=== PATIENT | female | born 1990 | race Caucasian/White ===

== ENCOUNTER 2016-09-10 01:00 | Inpatient (IN) | payer OTHER ==
[~2016-09-10] VITALS: Ht 162.6 cm; Wt 74.4 kg
[2016-09-10] MEDS ORDERED: Hemorrhage Kit, Post Partum XX ONE (07:40)
[2016-09-10] MEDS ORDERED: Sodium Chloride LOK Flush 10 mL Syringe IVFLUSH PRN (07:40)
[2016-09-10] MEDS ORDERED: Carboprost 250 mCg/mL Inj IM PRN (07:40)
[2016-09-10] MEDS ORDERED: Ondansetron 2 mg/mL 2 mL Inj IVPUSH PRN (07:40)
[2016-09-10] MEDS ORDERED: Oxytocin 30 Units/500 mL LR 30 UNITS in IV Premix 1 EACH IV PRN ×2 (07:40→08:35)
[2016-09-10] MEDS ORDERED: Methylergonovine 0.2 mg/mL Inj IM PRN (07:40)
[2016-09-10] MEDS ORDERED: Oxytocin 10 Unit/mL Inj IM PRN (07:40)
--- NOTE | 2016-09-10 07:55 | PCM.HPOB ---
Subjective Referring Provider: Admitting Physician: Aldair Frost MD Primary Care Physician: Aldair Frost MD Attending Physician: Aldair Frost MD Chief Complaint labor induction History of Present History of Present Illness Ms. Burleson is a 26 y/o woman at 41 weeks 6 days gestation with an BLAYNE of 08/28/16 based on LMP who presents to the [facility] for induction of labor for post-term . Her is complicated by bicornuate uterus. She was following with [facility]. From her outpatient records, ultrasound done at 32 weeks gestation showed possible IUGR, follow up at 35 weeks with MFM revealed normal growth at 26%. She has been feeling Herndon Rivera contractions and she felt one more intense contraction last night. She has some swelling in her feet. She has not had any fluid leakage or vaginal bleeding. She does not have fever, chills, headache, blurred vision, dizziness, chest pain, worsening dyspnea, upper abdominal pain, numbness, or tingling. Pt received Rhogam on 06/05/16 during . labs: O negative, first trimester and third trimester antibody screens were negative, varicella immune, rubella immune, Pap smear negative, RPR nonreactive, HBsAg negative, Hepatitis C negative, HIV nonreactive, chlamydia and gonorrhea negative, TSH 1.630, 1 hours glucose tolerance test within normal limits, GBS negative OB History: (3), Para (0) Past Medical History Obstetrical History: History of 2 first trimester spontaneous abortions Gynecologic History: No history of STIs No history of abnormal Pap smears Medical History: Seasonal allergies Hx Tobacco Use: No Hx Alcohol Use: No Hx Substance Use: No Past Family History Family History Paternal grandfather coronary artery disease Living Arrangement: with Family Review of Systems Constitutional: Y: Chills, Fever Eyes: Denies: Blurred Vision, Double Vision, Vision Changes Cardiovascular: Denies: Chest Pain, SOB while laying flat Respiratory: Denies: Cough, Pleuritic Chest Pain Gastrointestinal: Denies: Abdominal Pain, Diarrhea, Epigastric pain, Nausea, Vomiting Genitourinary: Denies: Dysuria Musculoskeletal: Reports: Swelling (bilateral feet) Neurological: Denies: Dizziness, Numbness Medications Home medications vitamin Loratadine Allergy Coded Allergies: thimerosal (Verified Allergy, Intermediate, RASH, 09/22/15) Exam Vital Signs T: 36.3 degrees C, BP 118/71, HR 94 bpm, respiratory rate 16 Exam FHR baseline 140s, moderate variability, accelerations Constitutional: Well-developed, Well-nourished HEENT: Atraumatic, EOMI, Scleral Anicteric, Mucous Membr Moist/[place] Lungs: Clear to Auscultation, Normal Air Movement Heart: Exam Unremarkable, Regular Rate/Rhythm, Normal S1, Normal S2, No Murmurs /Rubs/Gallops Abdomen: Gravid, Normal bowel sounds, No tenderness Extremities: Pulses Palpable x4, Warm, No Edema Neurological/Psychiatric: Alert, Oriented X3, Cooperative, No Acute Distress Neuro: Grossly Neurologically Intact Labs/Diagnostics Maternal Blood Type: O (negative) Antibody Screen: Negative first and third trimester Group B Strep Results: Negative Rubella: Immune Lab History: Negative for: Hx Gonorrhea, Hx HIV, Hx Herpes, Hx Syphilis OB Intrapartum Assessment/Plan Assessment 1. 26 y/o woman at 41 weeks 6 days gestation with an BLAYNE of 08/28/16 based on LMP who presents to the [facility] for induction of labor for post-term . Her is complicated by bicornuate uterus. - Blood type O negative. Given Rhogam intrapartum. Will need second Rhogam - Follow by MFM for bicornuate uterus and last US report available from 32 weeks gestation showed possible IUGR- follow up 26% at 35 weeks . She is at an increased risk for malpresentation and hemorrhage. - Mild contractions, Edmond score 7 - Admitted for induction of labor - Start Pitocin and if pt does not respond, then give Cytotec instead - Continue monitoring per protocols Attending Statement The patient was seen and examined together and I agree with the history, exam and plan as outlined in the note above. Given her Edmond's score of 7 pitocin will be started per protocol, if minimal change is noted with this can consider cervical ripening agents as needed. Birdie Ram DO Sep 10, 2016 07:55 Meghna Ruby MD Sep 10, 2016 08:53 Meghna Ruby MD Sep 10, 2016 08:53
[2016-09-10 08:04] LABS: Mean Corpuscular Hemoglobin 32.7 pg (27.0-35.0); Mean Corpuscular Volume 96.7 fL (81-100)
[2016-09-10] MEDS ORDERED: diphenhydrAMINE 50 mg Capsule PO PRN (08:35)
[2016-09-10] MEDS: Lactated Ringer's 1,000 ML IV SCH ×2 (09:20→17:47)
[2016-09-10] MEDS: fentaNYL-PF 50 mCg/mL 2 mL Inj IVPUSH PRN (22:04)
[2016-09-10] MEDS: Lactated Ringer's 1,000 ML IV PRN (23:31)
[2016-09-11] MEDS: fentaNYL-PF 50 mCg/mL 2 mL Inj IVPUSH PRN (00:24)
[2016-09-11] MEDS: Lactated Ringer's 1,000 ML IV PRN ×2 (01:58→04:30)
[2016-09-11] MEDS ORDERED: Lactated Ringer's 500 ML IV ONE (04:19)
[2016-09-11] MEDS ORDERED: EPHEDrine Sulfate 50 mg/mL Inj IVPUSH PRN ×2 (04:20→18:35)
[2016-09-11] MEDS ORDERED: Nalbuphine 10 mg/mL Inj IV PRN (04:20)
[2016-09-11] MEDS ORDERED: Ondansetron 2 mg/mL 2 mL Inj IVPUSH PRN (04:20)
[2016-09-11] MEDS ORDERED: Atropine 1 mg/10 mL (Code) Syringe IVPUSH PRN (04:20)
[2016-09-11] MEDS ORDERED: fentaNYL 2 mCg/mL-Bupiv 0.125% 100 ML EPIDURAL SCH (04:20)
--- NOTE | 2016-09-11 04:24 | PCM.HPANE ---
Patient Data Date of Service: Sep 11, 2016 Surgeon Admitting Provider:Aldair Frost MD Attending Provider:Aldair Frost MD Primary Care Physician:Aldair Frost MD Other Provider:Taylor Pham Anesthesia Reason for Visit Induction INDUCTION Ht/WT & BMI Body Mass Index Allergies Coded Allergies: thimerosal (Verified Allergy, Intermediate, RASH, 09/22/15) Past Anesthesia History Anesthesia History: Denies:: Abnormal Airway Diabetes History Hx Diabetes?: No Medications Hypertension Medication: No Home Meds Incl Beta Rajesh: No History History of ENT Problems?: No HEENT History: Denies:: Abnormal Airway Denture Type: None Teeth Condition: Within Normal Limits Hx of Heart Problems?: No Cardiovascular History: Denies:: Abdominal Aortic Aneurism Congestive Heart Failure Hypertension Hx of Respiratory Problem?: No Respiratory History: Denies:: Asthma Tuberculosis Hx Neurologic Problems?: No Neurological History: Denies:: Alzheimer's Disease Hx of GI Problems?: No Gastrointestinal History: Denies:: Cirrhosis Hx of Problems?: No Genitourinary History: Denies:: HX of Hemodialysis Female Hx: Positive for:: Currently Hx Musculoskeletal Problems?: No Musculoskeletal History: Denies:: Back Injury Hx of Psycho/Social Problems?: No Psycho Social History: Denies:: Anxiety Hx Surgeries?: No Hx Diabetes: No Hx Alcohol Use: NoHx Substance Use: No Smoking Status: Never Smoker Have You Smoked inLast 12 mo: No Stop/Bang Risk Assessment Category Category 1A: Patient has history of documented sleep apnea, and HAS NOT received any narcotic, sedative or anesthesia administration during this stay. Category 1B: Patient has history of documented sleep apnea, and HAS received any narcotic , sedative or anesthesia administration during this stay Category 2: Patient has SUSPECTED Obstructive Sleep Apnea, and HAS received any narcotic , sedative or anesthesia administration during this stay. Category 3: Patient has SUSPECTED Obstructive Sleep Apnea and HAS NOT received narcotic, sedative or anesthesia administration during this stay. Category 4: Outpatient in Procedural Areas with known sleep apnea or who screen positive for High Risk via the STOP/BANG questionnaire. Exam Exam Vital Signs reviewed with RN, unremarkable 128/76 84 18 99% afebrile General Appearance: Alert, Oriented X3, Cooperative, No Acute Distress HEENT/AIRWAY: MP 2 Lungs: Clear to Auscultation, Normal Air Movement Heart: Exam Unremarkable, Regular Rate/Rhythm, Normal S1, Normal S2, No Murmurs /Rubs/Gallops Meds/Labs/Diagnostics Admission Meds Current Medications Lactated Ringer's (Lr) 1,000 ml @ 125 mls/hr Q8H IV Last administered on t 17:47; Start 09/10/16 at 08:33 Labs Test 09/10/16 07:50 White Blood Count 10.5th/mm3 (3.8-10.1) Red Blood Count 4.19mil/mm3 (3.90-5.20) Hemoglobin 13.7g/dL (12.0-15.6) Hematocrit 40.5% (35.0-46.0) Mean Corpuscular Volume 96.7fL (81-100) Mean Corpuscular Hemoglobin 32.7pg (27.0-35.0) Mean Corpuscular Hemoglobin Concent 33.8% (32.0-37.0) Red Cell Distribution Width 12.8% (12.3-15.4) Platelet Count 205bil/L (150-400) Plan Impression Patient chart reviewed, patient interviewed and anesthestic plan with risks, benefits, and alternatives discussed, and informed consent obtained. ASA Physical Status: ASA2 Mod Systemic Disease Anesthetic Plan: Epidural Bene/Risks/Altern/Consents: Yes (including back pain, headache, nerve injury, bleeding, infection, cv/resp issues) HP Complete Prior to Induction: Yes Sonido Blackman MD Sep 11, 2016 04:24
--- NOTE | 2016-09-11 06:27 | PCM.PNOBIP ---
Subjective Date of Service Sep 11, 2016 Subjective Doing well this AM, has been on low dose pitocin all day yesterday with slow change from 2->4-->6 and then with SROM occurring around 2:30 AM. Pitocin was not increased beyond 8 and had to be dropped down multiple times due to hyperstimulation. She has since had an epidural placed at 3:30 AM and per nursing notes patient has been 7-8 since ~1am. She is now comfortable with no other complaints. heart rate decelerations that occurred after epidural placement have since resolved with pitocin rest, IVF and position changes. Pain Management: Epidural Group B Strep Results: Negative Rubella: Immune Blood Type: O (negative) Labs Laboratory Tests 09/10/16 07:50: White Blood Count 10.5, Red Blood Count 4.19, Hemoglobin 13.7, Hematocrit 40.5, Mean Corpuscular Volume 96.7, Mean Corpuscular Hemoglobin 32.7, Mean Corpuscular Hemoglobin Concent 33.8, Red Cell Distribution Width 12.8, Platelet Count 205 Exam Vital Signs Vital Signs Contraction frequency in minutes: MVUs: Vital Signs: VS reviewed, stable Heart Tracings Heart Tones Baseline 120/moderate/occasional mild variable decels, late decelerations have resolved bpm Tocometry/IUPC Contraction frequency in minutes: MVUs: Inadequate Sterile Vaginal Exam On examination the vertex is high and her cervix is 4-5 and stretchy to 8 cm with floppy cervix. Cervical Dilation: 5 cms Cervical Effacement: 80 % Station: -2 Exam General: Alert, Oriented X3, Cooperative, No Acute Distress OB Intrapartum Assessment/Plan Assessment Labor Problems: (1) , post-term Plan: On my examination I believe the patient is significantly less dilated than believed due to her floppy, stretchy cervix, as she is not 6cm dilated yet , I do not yet believe she is in active labor. At this point in time recommend continue pitocin titration until MVU adequate and patient at least >6cm for more than two hours before diagnosing an active phase arrest. heart tones reassuring. Continue same. Status: Acute ICD Code: O48.0 Intrapartum plan: Continue expected management, IUPC placed Intrapartum Pain Management: Epidural Meghna Ruby MD Sep 11, 2016 06:27
[2016-09-11] MEDS: Lactated Ringer's 1,000 ML IV SCH ×5 (08:05→20:19)
[2016-09-11] MEDS: Sodium Chloride LOK Flush 10 mL Syringe IVFLUSH SCH ×2 (08:30→16:30)
[2016-09-11] MEDS ORDERED: Oxytocin 10 Unit/mL Inj ONE ×2 (12:44→12:48)
[2016-09-11] MEDS ORDERED: Lidocaine 2%-Epi 1:100,000 20 mL Inj ONE (12:44)
[2016-09-11] MEDS ORDERED: Ondansetron 2 mg/mL 2 mL Inj ONE (12:44)
[2016-09-11] MEDS ORDERED: Chloroprocaine-MPF 2% 20 mL Inj ONE (12:44)
[2016-09-11] MEDS ORDERED: Sodium Citrate-Citric Acid 15 mL Solution ONE (16:20)
[2016-09-11] MEDS ORDERED: fentaNYL-PF 50 mCg/mL 2 mL Inj IVPUSH PRN (18:35)
[2016-09-11] MEDS ORDERED: hydrOXYzine Pamoate 25 mg Capsule PO PRN (19:20)
[2016-09-11] MEDS ORDERED: Methylergonovine 0.2 mg/mL Inj IM PRN (19:20)
[2016-09-11] MEDS ORDERED: Hemorrhage Kit, Post Partum XX ONE (19:20)
[2016-09-11] MEDS ORDERED: LANOlin HPA 7 Gm Ointment TOPICAL PRN (19:20)
[2016-09-11] MEDS ORDERED: Carboprost 250 mCg/mL Inj IM PRN (19:20)
[2016-09-11] MEDS ORDERED: Oxytocin 30 Units/500 mL LR 30 UNITS in IV Premix 1 EACH IV PRN (19:20)
[2016-09-11] MEDS ORDERED: Sodium Chloride LOK Flush 10 mL Syringe IVFLUSH PRN (19:20)
[2016-09-11] MEDS ORDERED: Acetaminophen IV 1,000 MG in IV Premix 1 EACH IV PRN (19:20)
[2016-09-11] MEDS ORDERED: Oxytocin 10 Unit/mL Inj IM PRN (19:20)
--- NOTE | 2016-09-11 19:22 | PCM.ANEP1 ---
Post Anesthesia Phase 1 PACU Phase 1 Assessment Date of Service: Sep 11, 2016 Vital Signs 36.6, 98%, 98/49, 77, 16 Anesthetic Administered: GA Level of Alertness: Awake, talking NOLAND's with Equal Strength: No Pain: No Pain Scale Score: 0 Nausea or Vomiting: No Cardiovascular Function and Hy: Yes Oxygen Delivery: Room Air Lungs: Clear to Auscultation Dermatome Level: T10 (Umbilicus) Summary Failed epidural, but SAB worked well. Complications: Yes Follow up Care: No Patient Instructions Provided: Yes (by RN) Ayden Mabry MD Sep 11, 2016 19:22
--- NOTE | 2016-09-11 23:01 | OP ---
[address] [address] OPERATIVE REPORT PATIENT: OSMAR SNYDER : 1990 MR#: [id number] ADMIT: 09/10/2016 JOB ID: [id number] DATE OF SURGERY: 09/11/2016 PROCEDURE: Primary low transverse section. PREOPERATIVE DIAGNOSIS(ES): 1. Intrauterine 41 weeks and 1 day. 2. Induction of labor for post-dates. 3. Nonreassuring heart rate. POSTOPERATIVE DIAGNOSIS(ES): 1. Intrauterine 41 weeks and 1 day. 2. Induction of labor for post-dates. 3. Nonreassuring heart rate. SURGEON: Aldair Frost MD. POTASH FLAKER: Fish Ochoa MD. Assistance of Dr. Ochoa was necessary for handling of the tissue, proper exposure, helping with delivery of the and retraction. ANESTHESIA: Spinal. ESTIMATED BLOOD LOSS: 600 mL. ESTIMATED URINE OUTPUT: 200 mL. FLUIDS: 1 L of Lactated Ringer's. COMPLICATIONS: None. PROCEDURE: The patient was brought to the operating room, where she underwent spinal anesthesia without difficulty. The patient received preoperative antibiotics. She was prepped and draped in the usual surgical fashion. Time-out was performed verifying correct patient, correct procedure. Chapis Hugger was used to maintain adequate core body temperature. Pfannenstiel skin incision was made with a scalpel and carried down to the underlying layer of rectus muscle fascia using Bovie. The rectus muscle fascia was incised in the midline with the Bovie and the incision was then laterally extended using Hunter scissors. The lower aspect of the incision was grasped with two Akin clamps and the rectus muscle fascia was from the underlying rectus muscle using Hunter scissors. In a similar fashion, the upper aspect of the incision was grasped with two Akin clamps and the rectus muscle fascia was from the underlying rectus muscle using moist laparotomy sponge and Hunter scissors. The rectus muscles were in the midline. The peritoneum was identified, tented up with two Dawna clamps, and entered sharply with the Metzenbaum scissors. The peritoneal incision was laterally extended. The bladder blade was introduced. Using scalpel, lower segment transverse uterine incision was made and extended laterally. The bladder blade was removed. The head of the infant was identified and male was atraumatically delivered with scores 8 at one minute and 10 at five minutes. Delayed cord clamping was done for 60 seconds. The was handed off to the waiting environmental compliance engineer. Cord blood was sent. The placenta was removed by applying fundal pressure. The uterus was exteriorized and cleared from all the blood clots and debris using a dry laparotomy sponge. The uterine incision was repaired with two layers of Monocryl. The pelvis was irrigated with warm normal saline. Good hemostasis was reassured and the uterus was repositioned back into the pelvis. The peritoneum was reapproximated with 2-0 Vicryl. Two interrupted 2-0 Vicryl sutures were placed to reapproximate the rectus muscles. The fascia was closed with 0-Vicryl. The Deangelo's fascia and subcuticular tissue was reapproximated with 3-0 Vicryl. The skin was closed with 4-0 Monocryl. Dermabond was applied. Steri-Strips were applied. Hemostatic dressing with Microfoam was applied. The patient was repositioned back into the supine position. She tolerated the procedure well and was transferred to the recovery room in stable condition.
[2016-09-12] MEDS: Sodium Chloride LOK Flush 10 mL Syringe IVFLUSH SCH ×3 (00:30→16:30)
[2016-09-12] MEDS: Lactated Ringer's 1,000 ML IV SCH ×3 (03:18→11:18)
[2016-09-12 07:25] LABS: Mean Corpuscular Hemoglobin 32.1 pg (27.0-35.0); Mean Corpuscular Volume 97.2 fL (81-100)
--- NOTE | 2016-09-12 08:25 | PCM.PNOBPP ---
Subjective Date of Service Sep 12, 2016 Post : Primary Ceserean Delivery Subjective Ms. Burleson is a 26 y/o now woman status post primary . Today is post-operative and post- day 1. She has not gotten out of bed since last night because she has been sleeping. She still has a Choi catheter in place. She is passing gas. She has minimal to no pain as long as she is laying in bed. She is her son. She does not have nausea or vomiting. She ate dinner last night without issues. She does not have pain in her legs. Lochia: Light Pain Management: PO pain meds Gastrointestinal: Good Appetite, No N/V, Passing Flatus Group B Strep Results: Negative Rubella: Immune Blood Type: O (negative) Labs Laboratory Tests 09/12/16 07:15: White Blood Count 16.7, Red Blood Count 3.86, Hemoglobin 12.4, Hematocrit 37.5, Mean Corpuscular Volume 97.2, Mean Corpuscular Hemoglobin 32.1, Mean Corpuscular Hemoglobin Concent 33.1, Red Cell Distribution Width 12.8, Platelet Count 169 Exam Vital Signs Vital Signs: VS reviewed, stable Exam Abdomen: Uterus is, Fundus firm, Abdomen appropriately tender : Choi catheter Extremities: No tenderness/swelling Lungs: Clear to Auscultation, Normal Air Movement Heart: Exam Unremarkable, Regular Rate/Rhythm, Normal S1, Normal S2 General: Alert, Oriented X3, Cooperative, No Acute Distress Surgical Wound : Incision General Appearence: Steri Strips, Intact, No Erythemia, No Discharge, No Inflammatory Changes Dressing & Drainage Status: Dry & Intact, No Odor OB Post Assessment/Plan Assessment 1. 26 y/o now P1 woman status post primary section for non- reasuring FHR. She was originally induced for post-dates. Her was complicated by bicornuate uterus. -She had a male with Apgars 8 and 9 weighing 3627 g on 09/11/16. -Continue routine care -Continue to monitor vital signs Problems: (1) , post-term Status: Acute ICD Code: O48.0 Pain Evaluation: Adequate Pain Control VTE Mechanical Devices: Intermittant Pneumatic CD Post plan: Continue routine post care Attending Statement The patient was seen and examined together with Birdie Castellanos DO on and I agree with the history, exam and plan as outlined in the note above. Birdie Ram DO Sep 12, 2016 08:25 Tsering Martini MD Sep 12, 2016 19:28
[2016-09-12] MEDS: oxyCODONE-Acetamin 5-325 mg Tablet PO PRN (19:44)
[2016-09-13] MEDS: oxyCODONE-Acetamin 5-325 mg Tablet PO PRN ×3 (01:06→13:31)
[2016-09-13] MEDS ORDERED: OXYC1TAB24 PO (06:41)
[2016-09-13] MEDS ORDERED: DOCU-41 PO (06:41)
[2016-09-13] MEDS ORDERED: IBUP800T28 PO (06:41)
[2016-09-13] MEDS ORDERED: FERR-83 PO (06:41)
[2016-09-13] MEDS ORDERED: ASCO-294 PO (06:42)
--- NOTE | 2016-09-13 06:44 | PCM.DIOB ---
Obstetrical Disch Instruction Date of Service: Sep 13, 2016 Dates of Hospitalization Date of Hospital Admission Sep 10, 2016 at 07:08 Providers Admitting Physician: Aldair Frost MD Primary Care Physician: Aldair Frost MD Attending Physician: Aldair Frost MD Discharge Diagnosis Problems: (1) , post-term Status: Acute ICD Code: O48.0 (2) Status post primary low transverse section Status: Acute ICD Code: Z98.891 Diet Discharge Diet: No restrictions Activity Discharge Activity-General: Pelvic Rest for 6 weeks, Balance rest and activity , Ice incision 3-5 time/day for 20min, No lifting >15 pounds for 2 weeks, No lifting >10 pounds for 4-6 weeks Dressing and Incisional Care Dressing Care: Keep dressing clean, dry & intact, Allow Steri Stripes to fall off Hygiene: May shower, Wash incision with soap & water, DO NOT soak incision under water, NO bathtub, hot tub or whirlpool Additional Instructions Discharge Instructions Continue your vitamin. Please take the iron and vitamin c together for your anemia. Do not take more pain medication (Percocet) than is necessary -- less is better. Percocet pills have Tylenol (acetaminophen) in them at 325mg per pill. Do not take Tylenol in addition to your pain medication but should take one or the other. Do not take while driving or working. Both iron and Percocet can give you constipation so you have also been given a prescription for docusate to keep you regular. Be sure to follow up in 2 weeks and then again in [facility] at [facility]. Pelvic rest for 6 weeks (nothing per vagina including intercourse, tampons) If you have a fever greater than 100.4, please call [facility]. There is always someone sales contractor to talk to. If you have an increase in bleeding, call [facility]. If you have a lot of bleeding suddenly, especially if you have symptoms of dizziness & weakness with it, get emergency help. If you start experiencing extreme depression, especially if you feel that you are a danger to yourself or your family, seek emergency help. You have been through a lot -- BE SURE TO TAKE CARE OF YOURSELF. You have been sent home with the following prescriptions: - Percocet 5/325 mg, take 1 tab every 4-6 hours as needed for pain. - Colace 100 mg twice a day as needed for constipation. - Ferrous sulfate 325 mg every day. - Vitamin C 500 mg every day. Take with iron. - Ibuprofen 800mg take 1 tab every 8 hours as needed for pain. Take with a meal. Follow-up in 2 and 6 weeks with [facility]. Follow Up Plan Follow-up Provider (F9): [facility] Follow-up appointment: Weeks (2 and 6 weeks) Call your provider for: Fever or Chills, Shortness of breath, Heavy vaginal bleeding, Epigastric pain, Excessive constipation, Vaginal discomfort, Red painful breasts, Other (swelling in one leg or painful swelling in your legs) Birdie Ram DO Sep 13, 2016 06:44
--- NOTE | 2016-09-13 07:07 | PCM.DC.OB ---
Obstetrical Discharge Summary Date of Service Sep 13, 2016 Date of hospital admission Sep 10, 2016 at 07:08 Date of Discharge: Sep 13, 2016 Providers Admitting Physician: Aldair Frost MD Primary Care Physician: Aldair Frost MD Attending Physician: Aldair Frost MD Diagnosis at Time of Discharge 1. 26 y/o now P1 woman status post primary section for non- reasuring FHR. She was originally induced for post-dates. Her was complicated by bicornuate uterus. Problems: (1) , post-term Status: Acute ICD Code: O48.0 (2) Status post primary low transverse section Status: Acute ICD Code: Z98.891 Invasive procedures Primary low transverse section. Date of Procedure: Sep 11, 2016 Brief History and Physical: From history and physical performed on 09/10/16: Ms. Burleson is a 26 y/o woman at 41 weeks 6 days gestation with an BLAYNE of 08/28/16 based on LMP who presents to the [facility] for induction of labor for post-term . Her is complicated by bicornuate uterus. She was following with [facility]. From her outpatient records, ultrasound done at 32 weeks gestation showed possible IUGR, follow up at 35 weeks with MFM revealed normal growth at 26%. She has been feeling [place]ica Rivera contractions and she felt one more intense contraction last night. She has some swelling in her feet. She has not had any fluid leakage or vaginal bleeding. She does not have fever, chills, headache, blurred vision, dizziness, chest pain, worsening dyspnea, upper abdominal pain, numbness, or tingling. Pt received Rhogam on 06/05/16 during . labs: O negative, first trimester and third trimester antibody screens were negative, varicella immune, rubella immune, Pap smear negative, RPR nonreactive, HBsAg negative, Hepatitis C negative, HIV nonreactive, chlamydia and gonorrhea negative, TSH 1.630, 1 hours glucose tolerance test within normal limits, GBS negative Hospital Course: 1. 26 y/o now P1 woman status post primary section for non- reasuring FHR. She was originally induced for post-dates. Her was complicated by bicornuate uterus. She was discharged on postoperative and day 2. -She had a male with Apgars 8 and 9 weighing 3627 g on 09/11/16. She is . -She did not have nausea, vomiting, decreased appetite, dysuria, or leg pain. Her pain is well controlled. She has been ambulating in the hallway every 2 hours. She is passing gas. On exam, her lungs were clear to auscultation and heart was a regular rate and rhythm. Her surgical incision was well approximated with Steri strips intact and without surrounding erythema, edema, or warmth. Ascorbate Calcium (Vitamin C) 500 Mg Tablet 500 MG PO DAILY Prescribed by: ERICA RAM DO Docusate Sodium (Colace) 100 Mg Capsule 100 MG PO BID PRN PRN For Constipation Prescribed by: ERICA RAM DO Ferrous Sulfate (Ferrous Sulfate) 325 Mg Tablet 325 MG PO DAILY Prescribed by: ERICA RAM DO Ibuprofen (Ibuprofen) 800 Mg Tablet 800 MG PO TID PRN PRN For Pain Prescribed by: REICA RAM DO oxyCODONE-Acetaminophen 5-325 mg (oxyCODONE-Acetaminophen 5-325 mg) 1 Each Tablet 1 TAB PO Q6H PRN PRN For Pain Prescribed by: ERICA RAM DO Follow-up plan Continue your vitamin. Please take the iron and vitamin c together for your anemia. Do not take more pain medication (Percocet) than is necessary -- less is better. Percocet pills have Tylenol (acetaminophen) in them at 325mg per pill. Do not take Tylenol in addition to your pain medication but should take one or the other. Do not take while driving or working. Both iron and Percocet can give you constipation so you have also been given a prescription for docusate to keep you regular. Be sure to follow up in 2 weeks and then again in 6 weeks at [facility]. Pelvic rest for 6 weeks (nothing per vagina including intercourse, tampons) If you have a fever greater than 100.4, please call [facility]. There is always someone seed corn production manager to talk to. If you have an increase in bleeding, call [facility]. If you have a lot of bleeding suddenly, especially if you have symptoms of dizziness & weakness with it, get emergency help. If you start experiencing extreme depression, especially if you feel that you are a danger to yourself or your family, seek emergency help. You have been through a lot -- BE SURE TO TAKE CARE OF YOURSELF. You have been sent home with the following prescriptions: - Percocet 5/325 mg, take 1 tab every 4-6 hours as needed for pain. - Colace 100 mg twice a day as needed for constipation. - Ferrous sulfate 325 mg every day. - Vitamin C 500 mg every day. Take with iron. - Ibuprofen 800mg take 1 tab every 8 hours as needed for pain. Take with a meal. Follow-up in 2 and 6 weeks with [facility]. Discharge Diet: No restrictions Discharge Activity-General: Pelvic Rest for 6 weeks, Balance rest and activity , Ice incision 3-5 time/day for 20min, No lifting >15 pounds for 2 weeks Erica Ram DO Sep 13, 2016 06:51
[2016-09-13 11:25] VITALS: BP 121/77; PULSE 71; RESP 18
== END 2016-09-13 17:20 | disposition home or self-care (01) | DRG 766 ==
LOC: FBC 07:08
PROVIDERS: ADMIT Legal Medicine; ATTEND Legal Medicine
PROC: 3E033VJ Introduction of Other Hormone into Peripheral Vein, Percutaneous Approach (ICD-10-PCS; 2016-09-10)
PROC: 10H07YZ Insertion of Other Device into Products of Conception, Via Natural or Artificial Opening (ICD-10-PCS; 2016-09-11)
PROC: 10D00Z1 Extraction of Products of Conception, Low, Open Approach (ICD-10-PCS; principal; 2016-09-11 17:25)
DX: O48.0 Post-term pregnancy (principal); O76 Abnormality in fetal heart rate and rhythm complicating labor and delivery; O34.03 Maternal care for unspecified congenital malformation of uterus, third trimester; O62.1 Secondary uterine inertia; Q51.3 Bicornate uterus; Z3A.41 41 weeks gestation of pregnancy; Z37.0 Single live birth